=== PATIENT | male | born 1960 | race Caucasian/White ===

== ENCOUNTER 2017-06-24 17:02 | Emergency (ER) | END 2017-06-25 03:12 | disposition home or self-care (01) ==

== ENCOUNTER 2017-11-10 09:27 | Day surgery (SDC) | END 2017-11-12 09:16 | disposition home health service (06) ==

== ENCOUNTER 2017-11-23 13:34 | Emergency (ER) | END 2017-11-23 20:16 | disposition home or self-care (01) ==